=== PATIENT | male | born 1965 | race Caucasian/White ===

== ENCOUNTER 2019-04-04 11:58 | Emergency (ER) | payer OTHER ==
--- NOTE | 2019-04-04 12:29 | EDM.PDOC ---
ED HPI GENERAL MEDICAL PROBLEM - General Chief Complaint: Upper Extremity Injury/Pain Stated Complaint: laceration to middle finger on right Time Seen by Provider: 04/04/19 12:10 Source of Information: Reports: Patient History Limitations: Reports: No Limitations - History of Present Illness INITIAL COMMENTS - FREE TEXT/NARRATIVE: He is seen in the emergency department for evaluation of a work-related injury to his right middle finger. He cut right middle finger on an engine at work today. Applied pressure for approximately 35 minutes, but unable to stop the bleeding. Very tender at tip of middle finger. No other injury. Last tetanus about 5 years ago. left middle finger Pain Score (Numeric/FACES): 1 - Related Data Allergies Allergy/AdvReac Type Severity Reaction Status Date / Time No Known Allergies Allergy Verified 04/04/19 12:03 Home Meds: Home Meds Acetaminophen [Tylenol Arthritis] 650 mg PO BID PRN 11/14/16 [History] Naproxen Sodium 220 mg PO ASDIRECTED PRN 02/25/19 [History] Past Medical History - Past Health History Medical/Surgical History: Denies Medical/Surgical History HEENT History: Reports: Other (See Below) Other HEENT History: Poor dental care. Planning to get teeth pulled and dentures this year. 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 - Past Surgical History Musculoskeletal Surgical History: Reports: Other (See Below) Social & Family History - Tobacco Use Smoking Status *Q: Current Every Day Smoker Years of Tobacco use: 33 Packs/Tins Daily: 1 - Caffeine Use Caffeine Use: Reports: Energy Drinks Other Caffeine Use: 2 a day energy drinks - Alcohol Use Days Per Week of Alcohol Use: 5 Number of Drinks Per Day: 2 Total Drinks Per Week: 10 - Recreational Drug Use Recreational Drug Use: No Review of Systems - Review of Systems Review Of Systems: See Below Constitutional: Reports: No Symptoms Eyes: Reports: No Symptoms Ears: Reports: No Symptoms Nose: Reports: No Symptoms Mouth/Throat: Reports: No Symptoms Respiratory: Reports: No Symptoms Cardiovascular: Reports: No Symptoms GI/Abdominal: Reports: No Symptoms Genitourinary: Reports: No Symptoms Musculoskeletal: Reports: No Symptoms Skin: Reports: No Symptoms, Wound (laceration right middle finger.) Neurological: Reports: No Symptoms Psychiatric: Reports: No Symptoms ED EXAM, GENERAL - Physical Exam Exam: See Below Free Text/Narrative:: Healthy-appearing adult gentleman in no acute distress. Skin: 1 cm horseshoe shaped laceration over the pad of the right third distal phalanx. He is tender over that area. No other tenderness. Normal strength and movement in the fingers. Exam Limited By: No Limitations General Appearance: Alert, WD/WN, No Apparent Distress Course - Vital Signs Text/Narrative:: The right middle finger was cleansed with Betadine and soaked in a weak Betadine solution. Skin was dried and the laceration closed with dura carson. Gauze dressing was applied. There were no complications. Last Recorded V/S: Last Vital Signs Temp 36.7 C 04/04/19 11:59 Pulse 99 04/04/19 11:59 Resp 16 04/04/19 11:59 BP 157/103 H 04/04/19 11:59 Pulse Ox 98 04/04/19 11:59 - Orders/Labs/Meds Orders: Active Orders 24 hr Category Date Time Status Skin Adhesive [RC] ROUTINE Care 04/04/19 12:22 Active Vaccines to be Administered [RC] PER UNIT ROUTINE Care 04/04/19 12:24 Active Meds: Medications Discontinued Medications Generic Name Dose Route Start Last Admin Trade Name Freq PRN Reason Stop Dose Admin Diphtheria/Tetanus/Acell Pertussis 0.5 ml 04/04/19 12:23 04/04/19 12:34 Adacel IM 04/04/19 12:24 0.5 ml .ONCE ONE Administration Departure - Departure Time of Disposition: 12:35 Disposition: Home, Self-Care 01 Clinical Impression: Laceration of right middle finger Qualifiers: Encounter type: initial encounter Damage to nail status: without damage Foreign body presence: without foreign body Qualified Code(s): S61.212A - Laceration without foreign body of right middle finger without damage to nail, initial encounter - Discharge Information *PRESCRIPTION DRUG MONITORING PROGRAM REVIEWED*: Not Applicable *COPY OF PRESCRIPTION DRUG MONITORING REPORT IN PATIENT MOISES: Not Applicable Instructions: Laceration Care, Adult Referrals: PCP,Unknown [Primary Care Provider] - Forms: ED Department Discharge - My Orders Last 24 Hours: My Active Orders 04/04/19 12:22 Skin Adhesive [RC] ROUTINE 04/04/19 12:24 Vaccines to be Administered [RC] PER UNIT ROUTINE - Assessment/Plan Last 24 Hours: My Active Orders 04/04/19 12:22 Skin Adhesive [RC] ROUTINE 04/04/19 12:24 Vaccines to be Administered [RC] PER UNIT ROUTINE Assessment:: laceration right middle finger Plan: The wound was cleansed and then closed with Dermabond. Dressing applied. Keep the wound dry for 24 hours. Monitor for any signs of infection. Followup if this occurs. He can return to work without restrictions.
[2019-04-04] MEDS: Diphtheria,Pertussis(Acell),Tetanus Vaccine 0.5 ML SDV IM ONE (12:34)
[2019-04-04 13:47] VITALS: BP 159/99
== END 2019-04-04 12:55 | disposition home or self-care (01) ==
LOC: LL.ED 11:58
DX: S61.212A Laceration without foreign body of right middle finger without damage to nail, initial encounter (principal); F17.210 Nicotine dependence, cigarettes, uncomplicated; Z23 Encounter for immunization; Z79.899 Other long term (current) drug therapy; W31.9XXA Contact with unspecified machinery, initial encounter; Y99.0 Civilian activity done for income or pay
CPT/HCPCS: 12001; 90471; 90715; 99282

== ENCOUNTER 2024-10-08 06:26 | Emergency (ER) | payer BC, OTHER ==
[2024-10-08] MEDS ORDERED: Sodium Chloride 0.9% 10 ML Syringe FLUSH PRN (06:38)
[2024-10-08 06:42] VITALS: PULSE 83
[2024-10-08 06:42] LABS: BASOPHILS ABSOLUTE AUTO 0.04 K/uL (0.00-0.20); BASOPHILS PERCENT AUTO 0.3 % (0.0-2.0); EOSINOPHILS ABSOLUTE AUTO 0.23 K/uL (0.00-0.50); EOSINOPHILS PERCENT AUTO 1.7 % (0.0-5.0); HEMATOCRIT 45.7 % (39.0-49.0); IMMATURE GRAN ABSOLUTE AUTO 0.06 10^3/uL (0.00-0.04); IMMATURE GRAN PERCENT AUTO 0.4 % (0.0-0.4); LYMPHOCYTES ABSOLUTE AUTO 2.41 K/uL (0.50-3.50); LYMPHOCYTES PERCENT AUTO 17.4 % (10.0-50.0); MEAN CORPUSCULAR HEMOGLOBIN 32.8 pg (28.2-33.3); MEAN CORPUSCULAR VOLUME 93.6 fL (84.0-98.0); MONOCYTES ABSOLUTE AUTO 1.19 K/uL (0.00-1.00); MONOCYTES PERCENT AUTO 8.6 % (2.0-14.0); NEUTROPHILS ABSOLUTE AUTO 9.95 K/uL (1.40-7.00); NEUTROPHILS PERCENT AUTO 71.6 % (45.0-80.0); PLATELET COUNT,PLT 296 K/uL (150-350); RED BLOOD CELL COUNT 4.88 M/uL (4.33-5.41); RED CELL DISTRIBUTION WIDTH 12.6 % (11.2-14.1); WHITE BLOOD CELL COUNT,WBC 13.9 K/uL (4.0-10.2)
[2024-10-08 07:10] LABS: ALBUMIN 3.8 g/dL (3.4-5.0); BILIRUBIN TOTAL 0.6 mg/dL (0.2-1.0); CALCIUM 9.2 mg/dL (8.5-10.1); CARBON DIOXIDE,CO2 25.8 mmol/L (21.0-32.0); CREATININE 1.4 mg/dL (0.51-1.17); EST CRCL DRUG DOSING (CG) 65.24 mL/min; POTASSIUM,K 3.4 mmol/L (3.5-5.1); PROTEIN TOTAL,TP 7.6 g/dL (6.4-8.2)
[2024-10-08 07:11] LABS: ANION GAP 16.6 meq/L (7-15); MAGNESIUM 1.6 mg/dL (1.8-2.4)
[2024-10-08 07:32] LABS: PROTHROMBIN TIME 10.4 SEC (9.0-11.1)
[2024-10-08] MEDS: Meclizine 25 MG Tab PO ONE (07:55)
[2024-10-08 08:08] VITALS: BP 120/84
[2024-10-08] MEDS: Potassium Bicarbonate/Cit Ac 20 MEQ Effervescent Tab PO ONE (08:24)
== END 2024-10-08 08:45 | disposition home or self-care (01) ==
LOC: LL.ED 06:26
DX: B34.9 Viral infection, unspecified (principal); R42 Dizziness and giddiness; F41.9 Anxiety disorder, unspecified; I10 Essential (primary) hypertension; Z79.01 Long term (current) use of anticoagulants; Z79.899 Other long term (current) drug therapy; Z87.891 Personal history of nicotine dependence
CPT/HCPCS: 36415; 71045; 80053; 83605; 83735; 83880; 84484; 85025; 85379; 85610; 85730; 87428-QW; 93005; 99285; A9270-GY